=== PATIENT | female | born 1925 | race Caucasian/White ===

== ENCOUNTER → 2016-03-16 | Outpatient (CLI) | payer OTHER ==
[2014-12-21 16:30] VITALS: BP 108/64
[~2016-03-16] MED LIST: ASPI-482 PO; ASPI325T4 PO; CHOL10003 PO; CLOP75TA27 PO; FISH1CAP PO; GLUC1TAB69 PO; GLUC1TAB71 PO; OMEP40CA2 PO; REGADENOSON 0.4 MG/5 ML DISP.SYRIN. IV ONE
--- NOTE | 2016-03-16 20:38 | RAD ---
APPROVED REPORT Test Type: Pharmacological Stress Nurse/Tech: Jadyn Pop R.N. Test Indications: arrythmia, cardiac hx Cardiac History: stents, [place] 2013 Medications: See Electronic Medical Record Medical History: See Electronic Medical Record Resting ECG: SR W/ bbb, slight ST elevation in leads V1, V2,V3 Resting Heart Rate: 81 bpm Resting Blood Pressure: 173/82mmHg Pretest Chest Pain: No chest pain Nurse/Tech Notes lungs CTA, S1S2 Consent: The procedure was explained to the patient in lay terms. Informed consent was witnessed. Kishore eout was entered into [facility]. History and Stress Test performed by Jadyn Pop R.N. Pharm. Details Pharmacologic stress testing was performed using 0.4mg per 5ml of regadenoson given intravenously ove r 7-10 seconds. Stress Symptoms slight SOB which resolved by the end of recovery period. H/A towards end of recovery period POST EXERCISE Reason for Termination: Infusion complete Max HR: 101 bpm Max Blood Pressure: 149/62mmHg Blood Pressure response to exercise: Normal blood pressure response during stress. Heart Rate response to exercise: wnl Chest Pain: No. Arrhythmia: No. ST Change: Yes. the above noted elevation did increase a little post lexiscan dose Imaging Protocol IMAGE PROTOCOL: Rest Tc-99m/stress Tc-99m 1 day Rest: Stress: Viability: Radiopharm.Tc99m [id number] Sestamibi Dose11.9mCi 35mCi Duration 17min. 12min. Img Date 03/16/2016 03/16/2016 Inj-Img [id number]. 60min. Rest Admin Site:IV - Right AntecubitalAdministrator:HAKAN Montenegro Stress Admin Site: IV - Right AntecubitalAdministrator: Edilson Echevarria, RT (R)(N) STRESS DATA End Diast. Vol.54.0mlAv. Heart Rate80.0bpm LVEDV index BSA1.0mlCardiac Output0.1L/min End Syst. Vol.16.0mlCO Index BSA3.1L/min LVESV index BSA0.0mlMyocardial Ozus625.0g Eject. Uzjhhncm25.0% Stress Rates Pk. Fill Rate3.62EDV/secLVtime Pk. Fill 199.83msec Pk. Empty Rate4.09ESV/secLVtime Pk. Nyhat650.57msec /3 Pk. Fill1.29EDV/sec Stress Scores Regional WT0.00Summed WT1.00 Regional WM0.00Summed WM1.00 LV Perf. Quant 17 Seg. SSS9.00 17 Seg. SRS14.00 17 Seg. SDS0.00 Stress Defect Extent (% LAD)0.00Rest Defect Extent (% LAD)9.40Rev. Defect Extent (% LAD)0.00 Stress Defect Extent (% LCX) 22.50Rest Defect Extent (% LCX)36.30Rev. Defect Extent (% LCX)0.00 Stress Defect Extent (% RCA)23.30Rest Defect Extent (% RCA)14.40Rev. Defect Extent (% RCA)0.00 Stress Defect Extent (% LETICIA)11.50Rest Defect Extent (% LETICIA)21.70Rev. Defect Extent (% LETICIA)0.00 Conclusion 1. No elrctrocardiographic changes suggestive of myocardial ischemia with pharmacological stress 2. Alarge perfusion defect with rest and with stress occupying the inferoseptal wall suggestive of a scar. 3. No definite evidence of myocardial ischemia 4. Normal wall motion including the inferior wall with an ejection fraction of 70%. 5. Scan indicates low risk for future cardiac events
== END | disposition home or self-care (01) ==
LOC: NM 06:29
PROVIDERS: ATTEND Specialist
DX: I49.9 Cardiac arrhythmia, unspecified (principal); Z82.49 Family history of ischemic heart disease and other diseases of the circulatory system; Z79.01 Long term (current) use of anticoagulants
CPT/HCPCS: 78452; 93017; 96374; 96376; A9500; J2785